=== PATIENT | male | born 1975 | race Caucasian/White ===

== ENCOUNTER 2017-09-28 09:29 | Emergency (ER) | payer OTHER ==
[~2017-09-28] VITALS: Ht 185.4 cm; Wt 127.0 kg
[~2017-09-28 09:29] MED LIST: KEFLEX500 MG PO; MOTRIN800 MG PO
[2017-09-28 09:52] VITALS: BP 163/120
[2017-09-28] MEDS ORDERED: IBUPROFEN600 MG PO (10:01)
== END 2017-09-28 10:42 | disposition home or self-care (01) ==
LOC: ED 09:29
DX: K04.7 Periapical abscess without sinus (principal)

== ENCOUNTER → 2019-01-03 | Outpatient (CLI) | payer OTHER ==
[~2019-01-03] MED LIST changes: +IBUPROFEN600 MG PO
== END | disposition home or self-care (01) ==
LOC: CT 10:06
DX: R10.32 Left lower quadrant pain (principal)

== ENCOUNTER → 2019-06-14 | Outpatient (CLI) | payer OTHER | END | disposition home or self-care (01) | LOC: RAD 09:36 | DX: M19.072 Primary osteoarthritis, left ankle and foot (principal); M25.775 Osteophyte, left foot ==

== ENCOUNTER → 2019-12-27 | Outpatient (CLI) | payer OTHER | END | disposition home or self-care (01) | LOC: RAD 16:49 | PROVIDERS: ATTEND Nurse Practitioner | DX: G89.11 Acute pain due to trauma (principal) ==

== ENCOUNTER → 2024-09-06 | Outpatient (CLI) | payer OTHER | END | disposition home or self-care (01) | LOC: US 10:54 | PROVIDERS: ATTEND Nurse Practitioner | DX: M25.562 Pain in left knee (principal); M79.605 Pain in left leg; M79.89 Other specified soft tissue disorders ==